=== PATIENT | male | born 1960 | race Caucasian/White ===

== ENCOUNTER → 2019-07-30 | Outpatient (CLI) | payer OTHER ==
[~2019-07-30] MED LIST: NORCO 5-325 TA1 EAC1 PO; OMEPRAZOLE 20 M20 M1 PO; PRINIVIL10 MG PO
== END ==
LOC: M.LAB 17:47
PROVIDERS: ATTEND Surgery
DX: Z01.812 Encounter for preprocedural laboratory examination (principal); R10.31 Right lower quadrant pain

== ENCOUNTER → 2019-08-02 | Day surgery (SDC) | payer OTHER ==
[2019-08-02 13:03] LABS: HEMATOCRIT 37.9 % (42.0-52.0); HEMOGLOBIN 13.4 gm/dL (14.0-18.0); MCH 33.6 pg (26.0-34.0); MCHC 35.5 g/dL (28.0-37.0); MCV 94.7 fL (80.0-100.0); MPV 7.2 fl. (7.2-11.1); RDW-CV 13.5 % (10.5-14.5); WBC 5.6 thou/uL (4.0-11.0)
[2019-08-02 13:11] LABS: CALCIUM 8.1 mg/dL (8.5-10.1); CREATININE 1.1 mg/dL (0.6-1.3); POTASSIUM 4.1 mmol/L (3.5-5.1)
[2019-08-02 13:13] LABS: APTT 25.9 Seconds (25.0-31.3); PROTIME 10.4 Seconds (9.20-11.50)
--- NOTE | 2019-08-06 11:48 | OP ---
[facility] [address] [place] [address] OPERATIVE REPORT Name: STEELEVALDEMAR Room: [facility]#: [id number] Admission: 08/02/19 Attend Phys: [place] Discharge: Date of : 60 Report #: [id number] THIS REPORT FOR: //name// cc: Zen Weaver MD, Dean L. MD ~ THIS REPORT FOR: //name// CC: e[place] DATE OF SERVICE: 08/02/2019 PREOPERATIVE DIAGNOSIS: Right lower quadrant abdominal pain. POSTOPERATIVE DIAGNOSIS: Right lower quadrant abdominal pain. OPERATION: Diagnostic laparoscopy with enterolysis. SURGEON: [place] MD ANESTHESIA: General. ESTIMATED BLOOD LOSS: Minimal. SPECIMEN: None. DESCRIPTION OF PROCEDURE: After informed consent was obtained, the patient was brought to the operating room and placed supine. SCDs were placed and working, preoperative antibiotics were administered, general anesthesia was induced. The abdomen was then prepped and draped in the usual sterile fashion. A 5 mm incision was made in the left upper quadrant. A 5 mm trocar was placed under direct vision. Pneumoperitoneum was established. I placed a left sided 5 mm trocar under direct vision. I examined the abdomen. The liver appeared normal. The stomach appeared normal. There were adhesions of the omentum up to the abdominal wall near the umbilicus. These were taken down sharply with the LigaSure device. There was good hemostasis. I then examined the right side of the abdomen. There were absolutely no adhesions in the right side. The small bowel appeared normal. The right colon appeared normal. The ports were then removed under direct vision. The skin was closed with 4-0 Monocryl. Incisions were sealed with Dermabond. COMPLICATIONS: [place] [address] OPERATIVE REPORT Name: VALDEMAR STEELE Room: [facility]#: [id number] Admission: 08/02/19 Attend Phys: [place] Discharge: Date of : 60 Report #: [id number] DISPOSITION: The patient was taken to recovery in satisfactory condition. <ELECTRONICALLY SIGNED> By: [place] MD 08/06/19 [id number] MD /nt
== END | disposition home or self-care (01) ==
LOC: M.SUR
PROVIDERS: Anesthesiology
DX: R10.31 Right lower quadrant pain (principal); K66.0 Peritoneal adhesions (postprocedural) (postinfection); Z98.890 Other specified postprocedural states; Z79.899 Other long term (current) drug therapy; Z90.49 Acquired absence of other specified parts of digestive tract; Z91.040 Latex allergy status; Z91.041 Radiographic dye allergy status; Z88.2 Allergy status to sulfonamides